=== PATIENT | female | born 1975 | race African-American/Black ===

== ENCOUNTER 2016-08-21 21:27 | Emergency (ER) | payer OTHER, SELFPAY ==
[~2016-08-21 21:27] MED LIST: Iopamidol 370 76% 100 ML VIAL ONE
[2016-08-21 22:00] LABS: Bilirubin Negative (Negative); Blood, Urine Small (Negative); Clarity Clear (Clear); Glucose, Urine (Dipstick) Negative (Negative); Leukocyte Negative (Negative); Nitrite Negative (Negative); Protein, Urine (Dipstick) Trace mg/dL (Neg-Trace); Urobilinogen 0.2 mg/dL (0.2-1.0)
[2016-08-21 22:00] LABS: #Basophils 0.1 thou/uL (0.0-0.2); #Eosinphils 0.1 thou/uL (0.0-0.7); #Lymphocytes 2.6 thou/uL (1.20-3.40); #Monocytes 0.5 thou/uL (0.11-0.59); #Neutrophils 3.4 thou/uL (1.40-6.50); %Basophils 1.3 % (0.0-1.0); %Eosinophils 1.5 % (0.0-10.0); %Lymphocytes 39.2 % (21.0-51.0); %Monocytes 7.3 % (0.0-10.0); %Neutrophils 50.7 % (42.0-75.0); Hemoglobin 14.1 g/dL (12.0-16.0); Mean Corpuscular Hemoglobin 28.8 pg (27.0-31.0); Mean Corpuscular Volume 84.6 fl (81.0-99.0); Mean Platelet Volume 8.8 fL (7.4-10.4); Platelet Count 193 thou/uL (130-400); RBC Distribution Width 12.4 % (11.5-14.5); Red Blood Cell (RBC) Count 4.91 mill/uL (4.20-5.40); White Blood Cell (WBC) Count 6.7 thou/uL (4.8-10.8)
[2016-08-21 22:04] LABS: RBC/HPF 0-3 HPF (0-3)
[2016-08-21 22:05] LABS: Bacteria/HPF Rare-Few HPF (None Seen); Squamous Epithelial 0-3 HPF (0-3); WBC/HPF 0-3 HPF (0-3)
[2016-08-21 22:13] LABS: ALT (SGPT) 13 U/L (0-55); AST (SGOT) 16 U/L (5-34); Albumin 4.2 g/dL (3.5-5.0); Alkaline Phosphatase 72 U/L (40-150); Anion Gap 17 mmol/L (10-20); BUN (Urea Nitrogen) 4 mg/dL (7.0-18.7); Bilirubin, Total 0.3 mg/dL (0.2-1.2); Calc. Creatinine Clearance 0 mL/min (70-130); Carbon Dioxide 22 mmol/L (22-29); Chloride 104 mmol/L (98-107); Estimated GFR-MDRD 83; Globulin 3.6 g/dL (2.4-3.5); Glucose 83 mg/dL (70-105); Lipase 25 U/L (8-78); Protein, Total 7.8 g/dL (6.0-8.3); Sodium 140 mmol/L (136-145)
[2016-08-21 22:14] LABS: Potassium 2.8 mmol/L (3.5-5.1)
[2016-08-21] MEDS ORDERED: Ondansetron HCl/PF 4 MG/2 ML Vial ONE (22:20)
[2016-08-21] MEDS ORDERED: Ketorolac Tromethamine 30 MG/ML VIAL ONE (22:23)
--- NOTE | 2016-08-21 22:31 | RAD ---
LEFT KNEE FOUR VIEWS: 08/21/16 HISTORY: Trauma. Left knee pain. FINDINGS/IMPRESSION: No acute fracture or dislocation is identified. POS: RANDY
--- NOTE | 2016-08-21 22:33 | RAD ---
LEFT ANKLE THREE VIEWS LEFT LEG TWO VIEWS 08/21/16 HISTORY: Trauma, left ankle and leg pain. FINDINGS/IMPRESSION: The left tibia and fibula are intact. The ankle mortise is maintained. No fracture or dislocation is seen. POS: BRITTANY
--- NOTE | 2016-08-21 22:45 | RAD ---
LEFT FEMUR TWO VIEWS: 08/21/16 HISTORY: Trauma, left thigh pain. FINDINGS/IMPRESSION: The left femur is intact. POS: BRITTANYH
[2016-08-21] MEDS ORDERED: Potassium Chloride 20 MEQ TAB ONE (22:54)
--- NOTE | 2016-08-21 23:44 | CT ---
CT CHEST WITH IV CONTRAST CT ABDOMEN WITH IV CONTRAST CT PELVIS WITH IV CONTRAST CORONAL AND SAGITTAL REFORMATIONS OF THE THORACOLUMBAR SPINE: 08/21/16 HISTORY: Trauma, chest pain, abdominal pain, back pain. FINDINGS: There are low density lesions in the thyroid gland involving both lobes. No mediastinal hematoma or intimal flap is seen in the aorta to suggest transection. No pleural or pericardial effusions are id entified. Bilateral breast implants are present. No pneumothoraces, or pulmonary contusions are iden tified. There are mild dependent changes in the lung bases. The liver, spleen, pancreas, adrenal glands and right kidney are intact. The patient is post left ne phrectomy. Gallbladder is contracted. The urinary bladder appears intact. No free air or free fluid is seen in the abdomen or pelvis. There is a 1.5 cm left adnexal cyst, likely ovarian. The uterus is present. No fracture or subluxation is seen in the thoracolumbar spine. IMPRESSION: 1. No CT evidence of acute intrathoracic or solid organ injury. 2. Thyroid lesions should be evaluated with ultrasound on a nonemergent basis. POS: RANDY
[2016-08-22] MEDS ORDERED: Orphenadrine Citrate 60 MG/2 ML VIAL ONE (00:26)
== END 2016-08-22 01:15 | disposition home or self-care (01) ==
LOC: NAV ERS 21:27
DX: S30.0XXA Contusion of lower back and pelvis, initial encounter (principal); S30.1XXA Contusion of abdominal wall, initial encounter; S70.12XA Contusion of left thigh, initial encounter; I10 Essential (primary) hypertension; V03.10XA Pedestrian on foot injured in collision with car, pick-up truck or van in traffic accident, initial encounter
CPT/HCPCS: 71260; 74177; 80053; 81003; 81015; 83690; 85025; 93005; 96374; 96375; J1885; J2360; J2405